=== PATIENT | male | born 1980 | race Caucasian/White ===

== ENCOUNTER 2018-07-21 10:27 | Emergency (ER) | payer BC ==
[~2018-07-21] VITALS: Ht 193 cm; Wt 133.2 kg
[~2018-07-21 10:27] MED LIST: ASMANEX HF100 MCG/Ac; PROAIR HFA0.09 MG/AC IH; ULTRAM 50MG TAB50 MG PO; ZOFRAN8 MG PO
[2018-07-21 10:33] VITALS: TEMP 97.1
[2018-07-21] MEDS ORDERED: PROTONIX 40MG T40 MG PO (10:37)
[2018-07-21] MEDS ORDERED: TOPROL XL 25MG25 MG PO (10:37)
[2018-07-21] MEDS ORDERED: BENICAR 20MG TA20 MG PO (10:37)
[2018-07-21] MEDS ORDERED: XYZAL5 MG PO (10:37)
[2018-07-21] MEDS ORDERED: ADDERALL10 MG PO (10:38)
[2018-07-21] MEDS ORDERED: DULERA1 AR1 IH (10:38)
[2018-07-21] MEDS ORDERED: CRUTCHES MC (11:36)
[2018-07-21 12:22] VITALS: BP 116/67; PULSE 73
== END 2018-07-21 12:22 | disposition home or self-care (01) ==
LOC: COL.ER 10:27
DX: S82.892A Other fracture of left lower leg, initial encounter for closed fracture (principal); I10 Essential (primary) hypertension; X50.0XXA Overexertion from strenuous movement or load, initial encounter; Z88.1 Allergy status to other antibiotic agents
CPT/HCPCS: Q4045

== ENCOUNTER 2023-05-25 08:20 | Emergency (ER) | payer BC ==
[~2023-05-25] VITALS: Ht 190.5 cm; Wt 150.0 kg
[~2023-05-25 08:20] MED LIST changes: +ADDERALL10 MG PO; +BENICAR 20MG TA20 MG PO; +CRUTCHES MC; +DECADRON 4MG TAB4 MG PO; +DULERA1 AR1 IH; +PROTONIX 40MG T40 MG PO; +TOPROL XL 25MG25 MG PO; +XYZAL5 MG PO
[2023-05-25 08:29] VITALS: TEMP 98.1
[2023-05-25] MEDS ORDERED: LEVAQUIN 750MG750 M1 PO (09:04)
[2023-05-25 09:12] VITALS: BP 116/73; PULSE 76
== END 2023-05-25 09:12 | disposition home or self-care (01) ==
LOC: COL.ER 08:20
DX: J40 Bronchitis, not specified as acute or chronic (principal)